=== PATIENT | female | born 1945 | race African-American/Black ===

== ENCOUNTER → 2017-02-11 | Day surgery (SDC) | payer MEDICARE ==
[~2017-02-11] MED LIST: CALC500T54 PO; IV RINGERS,LACTATED 1000ML 1,000 ML IV SCH; LIDOCAINE 1% PF 2 ML VIAL. ID PRN; LIDOCAINE 2% PF Vial for OR 5 ML VIAL. ONE; MIDAZOLAM HCL/PF 2 MG/2 ML VIAL. IV PRN; OMEG-131 PO; PROPOFOL 40 ML IV ONE; fentaNYL PF VIAL 100 MCG/2 ML VIAL IV PRN
[2017-02-11 13:45] VITALS: BP 109/55
== END | disposition home or self-care (01) ==
LOC: SURG 10:48
PROVIDERS: ATTEND Internal Medicine Gastroenterology
DX: K64.0 First degree hemorrhoids (principal); Z87.39 Personal history of other diseases of the musculoskeletal system and connective tissue; M19.91 Primary osteoarthritis, unspecified site; F41.9 Anxiety disorder, unspecified; Z98.890 Other specified postprocedural states
CPT/HCPCS: 45378; J2704; J2001

== ENCOUNTER → 2017-06-14 | Outpatient (CLI) | payer MEDICARE | END | disposition home or self-care (01) | LOC: US 16:12 | DX: Z12.31 Encounter for screening mammogram for malignant neoplasm of breast (principal); E05.20 Thyrotoxicosis with toxic multinodular goiter without thyrotoxic crisis or storm; E01.0 Iodine-deficiency related diffuse (endemic) goiter | CPT/HCPCS: 76536; 77067 ==

== ENCOUNTER → 2017-06-30 | Outpatient (CLI) | payer MEDICARE | END | disposition home or self-care (01) | LOC: KCIC US 13:52 | DX: E04.2 Nontoxic multinodular goiter (principal) | CPT/HCPCS: 76536 ==

== ENCOUNTER → 2017-07-13 | Outpatient (CLI) | payer MEDICARE ==
[2017-07-13] MEDS: IOHEXOL 300 MG/ML 100ML VIAL. IV (09:32)
== END | disposition home or self-care (01) ==
LOC: KCIC CT 08:49
DX: E04.2 Nontoxic multinodular goiter (principal)
CPT/HCPCS: 70491; Q9967

== ENCOUNTER 2017-07-26 08:37 | Outpatient (CLI) | payer MEDICARE ==
[2017-07-26 09:21] LABS: ADD MAN DIFF? NO
[2017-07-26 09:28] LABS: BASO # 0.1 x10^3/uL (0.0-0.2); BASO % 1 % (0-3); EOS # 0.3 x10^3/uL (0.0-0.7); EOS % 3 % (0-3); HEMATOCRIT 38.3 % (36.0-47.0); LYMPH # 2.3 x10^3/uL (1.0-4.8); LYMPH % 27 % (24-48); MEAN CORPUSCULAR HEMOGLOBIN 25 pg (25-35); MEAN CORPUSCULAR HGB CONC 31 g/dL (31-37); MEAN CORPUSCULAR VOLUME 79 fL (79-100); MONO # 0.4 x10^3/uL (0.0-1.1); MONO % 4 % (0-9); NEUT # 5.4 x10^3uL (1.8-7.7); NEUT % 64 % (31-73); PLATELET COUNT 368 x10^3/uL (140-400); RED BLOOD COUNT 4.85 x10^6/uL (3.50-5.40); RED CELL DISTRIBUTION WIDTH 15.2 % (11.5-14.5); WHITE BLOOD COUNT 8.4 x10^3/uL (4.0-11.0)
[2017-07-26 09:45] LABS: PROTHROMBIN TIME PATIENT 12.8 SEC (11.7-14.0)
[2017-07-26] MEDS ORDERED: LIDOCAINE WITH 8.4% SOD BICARB 3 ML DISP.SYRIN. (10:28)
[2017-07-26] MEDS: LIDOCAINE WITH 8.4% SOD BICARB 3 ML DISP.SYRIN. INJ (11:16)
== END 2017-07-26 12:18 | disposition home or self-care (01) ==
LOC: INTRAD 08:37
DX: R59.1 Generalized enlarged lymph nodes (principal); Z79.01 Long term (current) use of anticoagulants
CPT/HCPCS: 36415; 38505; 76942; 85025; 85610; 88184; 88185

== ENCOUNTER → 2018-11-04 | Outpatient (CLI) | payer MEDICARE ==
[2017-09-10 15:00] VITALS: BP 128/57
[~2018-11-04] MED LIST changes: +ASPI-630 PO; -IV RINGERS,LACTATED 1000ML 1,000 ML IV SCH; -LIDOCAINE 1% PF 2 ML VIAL. ID PRN; -LIDOCAINE 2% PF Vial for OR 5 ML VIAL. ONE; +METH-364 PO; -MIDAZOLAM HCL/PF 2 MG/2 ML VIAL. IV PRN; -PROPOFOL 40 ML IV ONE; -fentaNYL PF VIAL 100 MCG/2 ML VIAL IV PRN
--- NOTE | 2018-11-04 16:41 | RAD ---
HAND RIGHT 3V 11/04/2018 12:00 AM INDICATION: Right hand swelling with right thumb pain. No recent injury. COMPARISON: None available. TECHNIQUE: 3 views of the right hand are provided. FINDINGS: There may be a nondisplaced fracture involving the base of the distal phalanx of first digit. Bone mineralization is within normal limits. Mild osteoarthrosis of the first carpometacarpal joint. Regional soft tissues are within normal limits. There is no soft tissue gas or osseous erosion. IMPRESSION: Suspect nondisplaced fracture involving the base of the distal findings of the first digit. Correlate with the site of point tenderness along the palmar aspect of the base of the distal phalanx of the first digit. Mild osteoarthrosis of the first carpometacarpal joint. Electronically signed by: Charlotte Paredes MD (11/04/2018 4:38 PM) [id number]
== END | disposition home or self-care (01) ==
LOC: RAD 10:21
PROVIDERS: ATTEND Family Medicine
DX: M19.041 Primary osteoarthritis, right hand (principal)
CPT/HCPCS: 73130

== ENCOUNTER → 2018-12-21 | Outpatient (CLI) | payer MEDICARE ==
[2017-09-10 15:00] VITALS: BP 128/57
--- NOTE | 2018-12-21 17:24 | RAD ---
DATE: 12/21/2018 EXAM: DIGITAL SCREEN BILAT W/CAD HISTORY: Routine screening COMPARISON: 06/14/2017 and 03/17/2016 tomographic exams This study was interpreted with the benefit of Computerized Aided Detection (CAD). Breast Density: SCATTERED The breast parenchyma shows scattered fibroglandular densities. Breast parenchyma level B. FINDINGS: Benign calcifications. No suspicious mass or distortion. IMPRESSION: Stable BI-RADS CATEGORY: 1 NEGATIVE RECOMMENDED FOLLOW-UP: 12M 12 MONTH FOLLOW-UP PQRS compliance statement: Patient information was entered into a reminder system with a target due date in one year for the next mammogram. Mammography is a sensitive method for finding small breast cancers, but it does not detect them all and is not a substitute for careful clinical examination. A negative mammogram does not negate a clinically suspicious finding and should not result in delay in biopsying a clinically suspicious abnormality. "Our facility is accredited by the [employer] Mammography Program."
== END | disposition home or self-care (01) ==
LOC: MAMMO 13:28
PROVIDERS: ATTEND Family Medicine
DX: Z12.31 Encounter for screening mammogram for malignant neoplasm of breast (principal); N64.89 Other specified disorders of breast
CPT/HCPCS: 77067

== ENCOUNTER → 2019-02-02 | Outpatient (CLI) | payer MEDICARE ==
[2017-09-10 15:00] VITALS: BP 128/57
[2019-02-02 15:15] LABS: BASO # 0.1 x10^3/uL (0.0-0.2); BASO % 1 % (0-3); EOS # 0.2 x10^3/uL (0.0-0.7); EOS % 2 % (0-3); HEMOGLOBIN 12.7 g/dL (12.0-15.5); LYMPH % 40 % (24-48); MEAN CORPUSCULAR HEMOGLOBIN 27 pg (25-35); MEAN CORPUSCULAR HGB CONC 33 g/dL (31-37); MEAN CORPUSCULAR VOLUME 83 fL (79-100); MONO # 0.4 x10^3/uL (0.0-1.1); MONO % 5 % (0-9); NEUT # 3.9 x10^3/uL (1.8-7.7); NEUT % 52 % (31-73); PLATELET COUNT 282 x10^3/uL (140-400); RED BLOOD COUNT 4.71 x10^6/uL (3.50-5.40); RED CELL DISTRIBUTION WIDTH 13.9 % (11.5-14.5); WHITE BLOOD COUNT 7.6 x10^3/uL (4.0-11.0)
[2019-02-02 15:17] LABS: BILIRUBIN,URINE NEGATIVE (NEG); CLARITY,URINE CLEAR; COLOR,URINE YELLOW; NITRITE,URINE NEGATIVE (NEG); PH,URINE 5.5; PROTEIN,URINE NEGATIVE (NEG-TRACE); UROBILINOGEN,URINE 0.2 mg/dL (0.2 mg/dL)
[2019-02-02 15:26] LABS: PROTHROMBIN TIME PATIENT 12.2 SEC (11.7-14.0)
[2019-02-02 15:29] LABS: ALBUMIN 3.7 g/dL (3.4-5.0); ALBUMIN/GLOBULIN RATIO 0.9 (1.0-1.7); BACTERIA,URINE FEW /HPF (0-FEW); CALCIUM 9.6 mg/dL (8.5-10.1); CREATININE 1.1 mg/dL (0.6-1.0); GFR 58.7; POTASSIUM 4.2 mmol/L (3.5-5.1); SQUAMOUS EPITHELIAL CELL,UR OCC /LPF; TOTAL BILIRUBIN 0.3 mg/dL (0.2-1.0); TOTAL PROTEIN 7.6 g/dL (6.4-8.2); WBC,URINE RARE /HPF (0-4)
== END | disposition home or self-care (01) ==
LOC: LAB 14:54
PROVIDERS: ATTEND Podiatrist
DX: Z01.812 Encounter for preprocedural laboratory examination (principal); Z98.890 Other specified postprocedural states
CPT/HCPCS: 36415; 80053; 81001; 85025; 85610; 85730

== ENCOUNTER → 2019-02-09 | Day surgery (SDC) | payer MEDICARE ==
[~2019-02-09] VITALS: Ht 157.5 cm; Wt 86.1 kg
[~2019-02-09] MED LIST changes: +ACET-704 PO; +ACETAMINOPHEN/CODEINE 300/30MG TABLET. PO ONE; +BUPIVACAINE MPF 0.5% 30 ML VIAL. ONE; +DEXAMETHASONE SOD PHOS 4 MG/ML VIAL ONE; +HYDROmorphone 2 MG/ML VIAL IV PRN; +IV RINGERS,LACTATED 1000ML 1,000 ML IV SCH; +LATA2.5D3 OU; +LIDOCAINE 1% 20 ML VIAL. ONE; +LIDOCAINE 1% PF 2 ML VIAL. ID PRN; +LIDOCAINE 2% PF 5 ML VIAL. ONE; +MORPHINE SULFATE 2 MG/ML VIAL. IV PRN; +MULT-460 PO; +ONDANSETRON PF 4 MG/2 ML VIAL. IV PRN; +ONDANSETRON PF 4 MG/2 ML VIAL. ONE; +POVIDONE-IODINE 10% TOPICAL OINTMENT 28GM TUBE. TP ONE; +PROCHLORPERAZINE 10 MG/2 ML VIAL. IV PRN; +PROPOFOL 20 ML IV ONE; +ceFAZolin 2GM PREMIX 2 GM/50 ML BAG IV ONE; +fentaNYL PF VIAL 100 MCG/2 ML VIAL IV PRN; +fentaNYL PF VIAL 100 MCG/2 ML VIAL ONE
--- NOTE | 2019-02-09 10:58 | PDOC1 ---
History and Physical Date of Admission Date of Admission DATE: 02/09/19 TIME: 10:57 Identification/Chief Complaint Chief Complaint [facility] Source Source: Chart review, Patient History of Present Illness History of Present Illness Ms Storey is a 73yo F w/ PMHx hyperthyroidism, HTN being seen in outpatient for hammertoe surgery on her right 5th toe. She had cardiac MPI 08/2017 that was negative. Denies any SOA, MEYERS. Denies any CHRISTIE or hx of arrhythmias, PUD, falls, injury, cervical stenosis. She does have some episodes of palpitations but no episodes of dizziness or passing out. Past Medical History Cardiovascular: HTN GI: Hemorrhoids Musculoskeletal: Osteoarthritis Endocrine: Hyperthyroidism Past Surgical History Past Surgical History: Appendectomy Family History Family History: Coronary Artery Disease Social History Smoke: No ALCOHOL: none Drugs: None Current Medications Current Medications Current Medications Cefazolin Sodium/ Dextrose 50 ml @ 100 mls/hr 1X PREOP PRN IV PRIOR TO PROCEDURE; Start 02/09/19 at 06:00; Stop 02/09/19 at 18:00 Ondansetron HCl (Zofran) 4 mg PRN Q6HRS PRN IV NAUSEA/VOMITING; Start 02/09/19 at 07:00; Stop 02/10/19 at 06:59; Status Cancel Fentanyl Citrate (Fentanyl 2ml Vial) 25 mcg PRN Q5MIN PRN IV MILD PAIN 1-3; Start 02/09/19 at 07:00; Stop 02/10/19 at 06:59; Status Cancel Fentanyl Citrate (Fentanyl 2ml Vial) 50 mcg PRN Q5MIN PRN IV MODERATE TO SEVERE PAIN; Start 02/09/19 at 07:00; Stop 02/10/19 at 06:59; Status Cancel Morphine Sulfate (Morphine Sulfate) 1 mg PRN Q10MIN PRN IV SEVERE PAIN 7-10; Start 02/09/19 at 07:00; Stop 02/10/19 at 06:59; Status Cancel Ringer's Solution 1,000 ml @ 30 mls/hr Q24H IV ; Start 02/09/19 at 07:00; Stop 02/09/19 at 18:59; Status Cancel Lidocaine HCl (Xylocaine-Mpf 1% 2ml Vial) 2 ml PRN 1X PRN ID PRIOR TO IV START; Start 02/09/19 at 07:00; Stop 02/10/19 at 06:59; Status Cancel Hydromorphone HCl (Dilaudid) 0.5 mg PRN Q10MIN PRN IV SEV PAIN, Second choice; Start 02/09/19 at 07:00; Stop 02/10/19 at 06:59; Status Cancel Prochlorperazine Edisylate (Compazine) 5 mg PACU PRN PRN IV NAUSEA, MRX1; Start 02/09/19 at 07:00; Stop 02/10/19 at 06:59; Status Cancel Ondansetron HCl (Zofran) 4 mg PRN Q6HRS PRN IV NAUSEA/VOMITING; Start 02/09/19 at 07:00; Stop 02/10/19 at 06:59 Fentanyl Citrate (Fentanyl 2ml Vial) 25 mcg PRN Q5MIN PRN IV MILD PAIN 1-3; Start 02/09/19 at 07:00; Stop 02/10/19 at 06:59 Fentanyl Citrate (Fentanyl 2ml Vial) 50 mcg PRN Q5MIN PRN IV MODERATE TO SEVERE PAIN; Start 02/09/19 at 07:00; Stop 02/10/19 at 06:59 Morphine Sulfate (Morphine Sulfate) 1 mg PRN Q10MIN PRN IV SEVERE PAIN 7-10; Start 02/09/19 at 07:00; Stop 02/10/19 at 06:59 Ringer's Solution 1,000 ml @ 30 mls/hr Q24H IV Last administered on 02/09/19at 10:50; Start 02/09/19 at 07:00; Stop 02/09/19 at 18:59 Lidocaine HCl (Xylocaine-Mpf 1% 2ml Vial) 2 ml PRN 1X PRN ID PRIOR TO IV START; Start 02/09/19 at 07:00; Stop 02/10/19 at 06:59 Hydromorphone HCl (Dilaudid) 0.5 mg PRN Q10MIN PRN IV SEV PAIN, Second choice; Start 02/09/19 at 07:00; Stop 02/10/19 at 06:59 Prochlorperazine Edisylate (Compazine) 5 mg PACU PRN PRN IV NAUSEA, MRX1; Start 02/09/19 at 07:00; Stop 02/10/19 at 06:59 Lidocaine HCl 20 ml STK-MED ONCE .ROUTE ; Start 02/09/19 at 07:50; Stop 02/09/19 at 07:50; Status DC Povidone Iodine ( Betadine Oint) 28 tanya STK-MED ONCE TP ; Start 02/09/19 at 07:50; Stop 02/09/19 at 07:51; Status DC Bupivacaine HCl (Sensorcaine Mpf 0.5%) 30 ml STK-MED ONCE .ROUTE ; Start 02/09/19 at 07:51; Stop 02/09/19 at 07:51; Status DC Dexamethasone Sodium Phosphate (Decadron) 4 mg STK-MED ONCE .ROUTE ; Start 02/09/19 at 07:55; Stop 02/09/19 at 07:55; Status DC Active Scripts Active Methimazole 10 Mg Tablet 5 Mg PO DAILY 30 Days Reported Multiple Vitamin (Multivitamin With Minerals) 1 Each Tablet 1 Each PO DAILY Latanoprost 2.5 Ml Drops 1 Drop OU HS Aspirin 81 Mg Tab.chew 1 Tab PO DAILY Calcium (Calcium Carbonate) 500 Mg Tab.chew 1,000 Mg PO DAILY Fish Oil 500 mg Softgel (Oxford-3/Dha/Epa/Fish Oil) 1 Each Capsule 1,000 Mg PO DAILY Allergies Allergies: Coded Allergies: No Known Drug Allergies (Unverified , 02/11/17) ROS General: No: Chills, Night Sweats, Fatigue, Malaise, Appetite, Other PSYCHOLOGICAL ROS: No: Anxiety, Behavioral Disorder, Concentration difficultie, Decreased libido, Depression, Disorientation, Hallucinations, Hostility, Irrita blity, Memory difficulties, Mood Swings, Obsessive thoughts, Physical abuse, Sexual abuse, Sleep disturbances, Suicidal ideation, Other Eyes: No Blurry vision, No Decreased vision, No Double vision, No Dry eyes, No Excessive tearing, No Eye Pain, No Itchy Eyes, No Loss of vision, No Photophobia, No Scotomata, No Uses contacts, No Uses glasses, No Other HEENT: No: Heacaches, Visual Changes, Hearing change, Nasal congestion, Nasal discharge, Oral lesions, Sinus pain, Sore Throat, Epistaxis, Sneezing, Snoring, Tinnitus, Vertigo, Vocal changes, Other ALLERGY AND IMMUNOLOGY: No: Hives, Insect Bite Sensitivity, Itchy/Watery Eyes, Nasal Congestion, Post Nasal Drip, Seasonal Allergies, Other Hematological and Lymphatic: No: Bleeding Problems, Blood Clots, Blood Transfusions, Brusing, Night Sweats, Pallor, Swollen Lymph Nodes, Other ENDOCRINE: No: Breast Changes, Galactorrhea, Hair Pattern Changes, Hot Flashes, Malaise/lethargy, Mood Swings, Palpitations, Polydipsia/polyuria, Skin Changes, Temperature Intolerance, Unexpected Weight Changes, Other Breast: No New/Changing Breast Lumps, No Nipple changes, No Nipple discharge, No Other Respiratory: No: Cough, Hemoptysis, Orthopnea, Pleuritic Pain, Shortness of breath, SOB with excertion, Sputum Changes, Stridor, Tachypnea, Wheezing, Other Cardiovascular: No Chest Pain, No Palpitations, No Orthopnea, No Paroxysmal Noc. Dyspnea, No Edema, No Lt Headedness, No Other Gastrointestinal: No Nausea, No Vomiting, No Abdominal Pain, No Diarrhea, No Constipation, No Melena, No Hematochezia, No Other Genitourinary: No Dysuria, No Frequency, No Incontinence, No Hematuria, No Retention, No Discharge, No Urgency, No Pain, No Flank Pain, No Other, No , No , No , No , No , No , No Musculoskeletal: No Gait Disturbance, No Joint Pain, No Joint Stiffness, No Joint Swelling, No Muscle Pain, No Muscular Weakness, No Pain In:, No Swelling In:, No Other Neurological: No Behavorial Changes, No Bowel/Bladder ControlChng, No Confusion, No Dizziness, No Gait Disturbance, No Headaches, No Impaired Coord/balance, No Memory Loss, No Numbness/Tingling, No Seizures, No Speech Problems, No Tremors, No Visual Changes, No Weakness, No Other Skin: No Dry Skin, No Eczema, No Hair Changes, No Lumps, No Mole Changes, No Mottling, No Nail Changes, No Pruritus, No Rash, No Skin Lesion Changes, No Other, No Acne Physical Exam General: Alert, Oriented X3, Cooperative, No acute distress HEENT: Atraumatic, PERRLA, EOMI, Mucous membr. moist/pink Lungs: Clear to auscultation, Normal air movement Heart: S1S2, RRR, no thrills, no rubs Abdomen: Normal bowel sounds, Soft, No tenderness, No hepatosplenomegaly, No masses Extremities: No clubbing, No cyanosis, No edema, Normal pulses, No tenderness/swelling Skin: No rashes, No breakdown, No significant lesion Neuro: Normal gait, Normal speech, Strength at 5/5 X4 ext, Normal tone, Sensation intact, Cranial nerves 3-12 NL, Reflexes 2+ Psych/Mental Status: Mental status NL, Mood NL Vitals Vitals Vital Signs Date Time Temp Pulse Resp B/P (MAP) Pulse Ox O2 Delivery O2 Flow Rate FiO2 02/09/19 10:39 97.2 67 18 96 97.2 VTE Prophylaxis Ordered VTE Prophylaxis Devices: No VTE Pharmacological Prophylaxi: No Assessment/Plan Assessment/Plan A/P: Right 5th hammertoe - no further testing required prior to planned surgery. Nega tive stress test in 2018, EKG reviewed HTN - On meds Hyperthyroidism - methimazole. Sees Dr. Ruthie Munoz through [facility] No further testing necessary prior to planned surgery SHARON COY MD Feb 09, 2019 10:58
[2019-02-09 13:05] VITALS: BP 116/63
--- NOTE | 2019-02-09 13:22 | DISCH ---
DISCHARGE INSTRUCTIONS Condition on Discharge Condition on Discharge: Stable Activity After Discharge Activity Instructions for Disc: Activity as tolerated, Other, see below (Mi nimal weight bearing right lower extremity in surgical shoe) Bathing Instructions: Shower-keep dressing dry Weight Bearing Status after Di: Other, see below (Minimal weight bearing right lower extremity in surgical shoe) Diet after Discharge Diet after Discharge: Regular Wound Incision Care Wound/Incision Care: Keep wound/cast CDI, Keep wound elevated, Do not change dressing Contacting the DRMayda after DC Call your doctor for: [phone] if any issue Follow-Up Follow up with: Dr. Pringle in clinic on 02/15/19 at 1pm. ALICIA PRINGLE DPM Feb 09, 2019 13:22
--- NOTE | 2019-02-09 14:36 | PDOC4 ---
OPERATIVE NOTE: Post-Op Note Date of surgery: 02/09/19 Surgeon: Dr. Alicia Pringle DPM Pre-op Diagnosis: Hammer digit, right 5th digit Post-op diagnosis: Same as Above Procedure: Hammer digit correction, right 5th digit EBL: 2ml (minimal) Complications: None Hemostasis: Right ankle tourniquet set at 250mmHg for 22 mins. Patient tolerated the procedure and anesthesia well. Patient transferred to PACU with vital signs stable and in stable condition with vascular status intact to the right foot. Patient to be minimal WBAT in a surgical shoe to the right foot till followup in clinic. Patient to followup in clinic on Wednesday02/15/19 at 1pm. ALICIA PRINGLE DPM Feb 09, 2019 14:36
--- NOTE | 2019-02-09 16:44 | RAD ---
Examination: FOOT RIGHT 3V History: Postop hammertoe correction of the fifth digit Comparison/Correlation: None Findings: Total 3 images of the right foot were obtained. Overlying bandages of the midfoot and forefoot limits evaluation for fine detail. Partial resection of the fifth digit proximal phalanx as distal aspect is noted. Resection of the base of the fifth digit middle phalanx appears be present as well. Osteopenia is mild. Small calcaneal spur. No bony destructive findings. Degenerative changes of interphalangeal joints noted. Soft tissue swelling about the fifth metatarsophalangeal joint noted corresponding with surgical history. Impression: Postoperative findings. No suspicious process. Consider further evaluation and possible myelitis is a concern. Electronically signed by: Sukumar Lopez MD (02/09/2019 4:41 PM) [facility]
--- NOTE | 2019-02-13 12:26 | OP ---
DATE OF SURGERY: 02/09/2019 PREOPERATIVE DIAGNOSIS: Hammertoe, right foot fifth digit. POSTOPERATIVE DIAGNOSIS: Hammertoe, right foot fifth digit. PROCEDURE PERFORMED: Hammertoe correction with arthroplasty, right fifth digit. SURGEON: Alicia Pringle DPM HEMOSTASIS: Right ankle tourniquet set at 250 mmHg for 22 minutes. ANESTHESIA: IV MAC sedation with local anesthesia in a digital block fashion at the right fifth digit. INDICATIONS: The patient is a 73-year-old woman with a chronically painful fifth digit due to a corn secondary to a hammertoe deformity of the right fifth digit. The patient tried conservative treatment with wider shoes, accommodative padding without any improvement and discussed the procedure as well as the postop course, its risks, benefits, and complications including delayed healing, nonhealing, need for further surgery, infection, chronic regional pain syndrome, recurrence, numbness, tingling, burning, loss of sensation, blood clots to the leg, blood clots to the lung, overcorrection, under correction, stiff toe, floppy toe, flail toe, lack of toe purchase in detail with the patient. All questions were answered. No guarantees were made. The patient signed the consent freely and it was placed in the chart. DESCRIPTION OF PROCEDURE: The patient was transported to the operating room via cart and placed on the operating room table in a supine position. After verification of the patient, procedure, and the site, a well-padded right ankle tourniquet was placed. IV sedation was performed by Anesthesia and a local anesthetic block was administered to the right 5th digit consisting of 1:1 mixture of 1% lidocaine plain and 0.5% Marcaine plain using 10 mL total. The right foot was then prepped and draped in the usual aseptic manner. Esmarch bandage was used to exsanguinate the right foot. The right ankle tourniquet was inflated to 250 mmHg. Attention was then drawn to the fifth digit PIPJ where 2 elliptical incisions were made to excise the corn that was visible. Next, the incision was deepened with care taken to protect the neurovascular bundle. The incision was deepened to the joint capsule of the PIPJ. A horizontal incision was made along the extensor tendon as well as the joint capsule and the joint capsule was reflected off the proximal phalanx head of the right fifth digit. Next, the proximal phalanx head was resected about 3 mm in length and it was noted that the toe position was rectus. Next, the incision site was irrigated copiously with sterile saline solution. Next, the extensor tendon was sutured together with 3-0 Vicryl. The skin incision was then sutured in a horizontal mattress fashion with 4-0 nylon. The tourniquet was deflated after 22 minutes with good perfusion noted to the digits. A Betadine ointment, Adaptic, 4 x 4 gauze, Kerlix, and Cheko wrap bandage were applied to the site. There was good perfusion noted to all the digits of the right foot. The patient tolerated the anesthesia and the procedure well and was transported to the PACU in a stable condition with vascular status intact to the right foot. The patient's postop instructions were placed in the chart. The patient to be minimal weightbearing as tolerated in a surgical shoe. The patient is to follow up in clinic within 5-7 days or sooner if any issues. The patient was given postoperative medications for pain. ALICIA PRINGLE DPM DR: Wiley JOB#: [id number] / [id number]
--- NOTE | 2019-02-13 15:07 | PATHOLOGY ---
[facility] Accession Number: [id number] . 01 Material submitted: . toe - BONE FIFTH DIGIT RIGHT FOOT. Modifiers: right, fifth . 01 Clinical history: . None provided. . 02 Diagnosis: Segments of bone and cartilage with focal attached fibrous tissue, fifth digit right foot: - Consistent with hammertoe deformity. (JPM:academic coordinator; 02/13/2019) MBR 02/13/2019 1005 Local . 02 Electronically signed: . Alcides Justin MD, Pathologist NPI- [id number] . 01 Gross description: . Received in formalin labeled "Bhavik Storey, bone, fifth digit right foot" is a fragment of franco-white bone measuring 1.3 x 0.7 x 0.5 cm. The specimen is trisected and submitted in cassette A1 following decalcification. [place] 02/09/2019[place] [facility] 02/09/2019 1907 Local . 02 Pathologist provided ICD-10: M20.61 . 02 CPT . 687831, [id number] Specimen Comment: A courtesy copy of this report has been sent to Specimen Comment: [phone], . Specimen Comment: Report sent to / DR FANG Performed at: 01 [facility] [address], [place] [id number] MD Vinh Denton MD Phone: [phone] Performed at: 02 [facility] [address] [place], [place] [id number] MD Alcides Justin MD Phone: [phone]
== END ==
LOC: SURG 09:58
PROVIDERS: ATTEND Podiatrist
DX: M20.41 Other hammer toe(s) (acquired), right foot (principal); E05.90 Thyrotoxicosis, unspecified without thyrotoxic crisis or storm; F41.9 Anxiety disorder, unspecified; H40.9 Unspecified glaucoma; L84 Corns and callosities; B35.1 Tinea unguium; Z79.82 Long term (current) use of aspirin; I11.9 Hypertensive heart disease without heart failure; I43 Cardiomyopathy in diseases classified elsewhere; Z87.39 Personal history of other diseases of the musculoskeletal system and connective tissue
CPT/HCPCS: 28285; 73630; 88304; 88311; A7015; J0696; J2001; J2405; J2704; J3010; J3490; J1100

== ENCOUNTER → 2020-01-08 | Outpatient (CLI) | payer MEDICARE ==
[2019-02-09 13:05] VITALS: BP 116/63
[~2020-01-08] MED LIST changes: -ACETAMINOPHEN/CODEINE 300/30MG TABLET. PO ONE; -BUPIVACAINE MPF 0.5% 30 ML VIAL. ONE; -DEXAMETHASONE SOD PHOS 4 MG/ML VIAL ONE; -HYDROmorphone 2 MG/ML VIAL IV PRN; -IV RINGERS,LACTATED 1000ML 1,000 ML IV SCH; -LIDOCAINE 1% 20 ML VIAL. ONE; -LIDOCAINE 1% PF 2 ML VIAL. ID PRN; -LIDOCAINE 2% PF 5 ML VIAL. ONE; -MORPHINE SULFATE 2 MG/ML VIAL. IV PRN; -ONDANSETRON PF 4 MG/2 ML VIAL. IV PRN; -ONDANSETRON PF 4 MG/2 ML VIAL. ONE; -POVIDONE-IODINE 10% TOPICAL OINTMENT 28GM TUBE. TP ONE; -PROCHLORPERAZINE 10 MG/2 ML VIAL. IV PRN; -PROPOFOL 20 ML IV ONE; -ceFAZolin 2GM PREMIX 2 GM/50 ML BAG IV ONE; -fentaNYL PF VIAL 100 MCG/2 ML VIAL IV PRN; -fentaNYL PF VIAL 100 MCG/2 ML VIAL ONE
--- NOTE | 2020-01-08 14:23 | RAD ---
EXAM: Carotid Doppler sonogram. HISTORY: Carotid bruit. TECHNIQUE: Evans scale and color Doppler sonographic evaluation of the neck with spectral waveform analysis was performed and static images are submitted for review. FINDINGS: The peak systolic velocity within the right common carotid artery is 149 cm/sec. The peak systolic velocity within the right internal carotid artery is 121 cm/sec and the end diastolic velocity within the right internal carotid artery is 21 cm/sec. The right ICA/CCA ratio is 0.81. The peak systolic velocity within the left common carotid artery is 110 cm/sec. The peak systolic velocity within the left internal carotid artery is 93 cm/sec and the end diastolic velocity within the left internal carotid artery is 29 cm/sec. The left ICA/CCA ratio is 0.84. There is normal antegrade flow within both vertebral arteries. IMPRESSION: No Doppler evidence of greater than 50 percent stenosis involving the internal carotid arteries. PQRS Compliance Statement - Stenosis calculations for CT, MR and conventional angiography are based upon measurement of the distal ICA diameter in accordance with the NASCET methodology. Stenosis calculations for carotid ultrasound studies are derived from validated velocity criteria which are known to correlate with the NASCET methodology. Electronically signed by: Dacia Brennan MD (01/08/2020 2:19 PM) [id number]
--- NOTE | 2020-01-09 09:13 | RAD ---
DATE: 01/08/2020 9:35 AM EXAM: MAMMO UZAIR SCREENING BILATERAL HISTORY: Screening COMPARISON: 12/21/2018, 06/14/2017 and 03/17/2016 Bilateral CC and MLO views of the breasts were performed. Bilateral breast tomosynthesis was performed in CC and MLO projections. This study was interpreted with the benefit of Computerized Aided Detection (CAD). FINDINGS: Breast Density: SCATTERED The breast parenchyma shows scattered fibroglandular densities. Breast parenchyma level B No suspicious masses, microcalcifications or architectural distortion is present to suggest malignancy in either breast. The visualized axillae are unremarkable. IMPRESSION: No mammographic evidence of malignancy. BI-RADS CATEGORY: 1 NEGATIVE RECOMMENDED FOLLOW-UP: 12M 12 MONTH FOLLOW-UP Annual screening mammography is recommended, unless clinically indicated sooner based on symptoms or change in physical exam. PQRS compliance statement: Patient information was entered into a reminder system with a target due date for the next mammogram. Mammography is a sensitive method for finding small breast cancers, but it does not detect them all and is not a substitute for careful clinical examination. A negative mammogram does not negate a clinically suspicious finding and should not result in delay in biopsying a clinically suspicious abnormality. "Our facility is accredited by the [employer] Mammography Program."
== END | disposition home or self-care (01) ==
LOC: MAMMO 09:12
PROVIDERS: ATTEND Family Medicine
DX: Z12.31 Encounter for screening mammogram for malignant neoplasm of breast (principal); R09.89 Other specified symptoms and signs involving the circulatory and respiratory systems
CPT/HCPCS: 77063; 77067; 93880

== ENCOUNTER → 2020-09-11 | Outpatient (CLI) | payer MEDICARE ==
[2019-02-09 13:05] VITALS: BP 116/63
--- NOTE | 2020-09-11 16:41 | CARD ---
MR#: [id number] Date of Study: 09/11/2020 Ordering Physician: FABIEN CHRISTENSEN, Referring Physician: FABIEN CHRISTENSEN, Tech: Uyen Lynch [facility] APPROVED REPORT EXAM: Two-dimensional and M-mode echocardiogram with Doppler and color Doppler. Other Information Quality : GoodHR: 66bpm Rhythm : NSR INDICATION Dyspnea Hypertension/HCVD 2D DIMENSIONS RVDd2.3 (2.9-3.5cm)Left Atrium(2D)3.2 (1.6-4.0cm) IVSd1.1 (0.7-1.1cm)Aortic Root(2D)2.7 (2.0-3.7cm) LVDd4.1 (3.9-5.9cm)LVOT Diameter2.0 (1.8-2.4cm) PWd1.0 (0.7-1.1cm)LVDs2.7 (2.5-4.0cm) FS (%) 34.3 %SV48.6 ml LVEF(%)63.8 (>50%) Aortic Valve AoV Peak Daniel.129.7cm/Wandy Peak GR.6.7mmHg LVOT Peak Daniel.102.5cm/sAVA (VMAX)2.48cm2 AI P 1/2 [id number] Mitral Valve MV E Sdovktpw62.5cm/sMV DECEL [id number] MV A Pvlsskqe05.9cm/sE/A Ratio0.9 Pulmonary Valve PV Peak Qcgajeey01.6cm/s Tricuspid Valve TR P. Npdvlwue612op/sRAP [id number] TR Peak Gr.79jtPeJJZP13gnWz Pulmonary Vein S1 Obbgoilx25.8cm/sD2 Iajcnlwe60.7cm/s PVa [id number] LEFT VENTRICLE The left ventricle is normal size. There is normal left ventricular wall thickness. The left ventricu lar systolic function is normal. The ejection fraction is estimated at 65%. There is normal LV segmen denise wall motion. Transmitral Doppler flow pattern is Grade I-abnormal relaxation pattern. No left elvin tricle thrombus noted on this study. There is no ventricular septal defect visualized. There is no le ft ventricular aneurysm. There is no mass noted in the left ventricle. RIGHT VENTRICLE The right ventricle is normal size. There is normal right ventricular wall thickness. The right ventr icular systolic function is normal. ATRIA The left atrium size is normal. The right atrium size is normal. The interatrial septum is intact wit h no evidence for an atrial septal defect or patent foramen ovale as noted on 2-D or Doppler imaging. AORTIC VALVE The aortic valve is mildly thickened. Doppler and Color Flow revealed mild aortic regurgitation. Ther e is no aortic valvular stenosis. There is no aortic valvular vegetation. MITRAL VALVE The mitral valve is normal in structure and function. There is no evidence of mitral valve prolapse. There is no mitral valve stenosis. There is no mitral valve regurgitation noted. TRICUSPID VALVE The tricuspid valve is normal in structure and function. Mild tricuspid regurgitation. PAP 36 mmHg. T here is no tricuspid valve prolapse or vegetation. There is no tricuspid valve stenosis. GREAT VESSELS The aortic root is normal in size. The ascending aorta is normal in size. The pulmonary artery is nor mal. PERICARDIAL EFFUSION There is no pleural effusion. There is no evidence of significant pericardial effusion. Critical Notification Critical Value: No <Conclusion> The left ventricular systolic function is normal. The ejection fraction is estimated at 65%. There is normal LV segmental wall motion. Transmitral Doppler flow pattern is Grade I-abnormal relaxation pattern. Mild aortic regurgitation. Mild tricuspid regurgitation. PAP 36 mmHg. There is no evidence of significant pericardial effusion. Signed by : Jimmie Galindo, Electronically Approved : 09/11/2020 16:40:38
== END ==
LOC: ECHO 10:23
PROVIDERS: ATTEND Internal Medicine Cardiovascular Disease
DX: I08.2 Rheumatic disorders of both aortic and tricuspid valves (principal)
CPT/HCPCS: 93306

== ENCOUNTER → 2020-10-22 | Outpatient (CLI) | payer MEDICARE ==
[2019-02-09 13:05] VITALS: BP 116/63
[2020-10-22 11:31] LABS: ALBUMIN 3.7 g/dL (3.4-5.0); ALBUMIN/GLOBULIN RATIO 0.9 (1.0-1.7); CALCIUM 9.1 mg/dL (8.5-10.1); GFR 65.4; POTASSIUM 4.3 mmol/L (3.5-5.1); TOTAL BILIRUBIN 0.4 mg/dL (0.2-1.0); TOTAL PROTEIN 7.6 g/dL (6.4-8.2)
--- NOTE | 2020-10-22 15:28 | RAD ---
EXAM: LUMBAR SPINE 3 VIEWS. HISTORY: Low back pain. COMPARISON: None. FINDINGS: Alignment is maintained. Vertebral body heights are maintained, and no fractures are identi fied. There is mild degenerative disc disease from L3 through L5. Facet osteoarthritis is at least mi ld from L4 through S1. Postsurgical changes are noted along the right lower quadrant. IMPRESSION: 1. Mild degenerative disc disease from L3 through L5. Electronically signed by: Navid Guaman MD (10/22/2020 3:26 PM) [id number]
[2020-10-23 00:09] LABS: HEMOGLOBIN A1C 5.9 % (4.8-5.6)
== END ==
LOC: LAB 10:12
PROVIDERS: ATTEND Family Medicine
DX: M47.817 Spondylosis without myelopathy or radiculopathy, lumbosacral region (principal); M51.36 Other intervertebral disc degeneration, lumbar region; E74.39 Other disorders of intestinal carbohydrate absorption; M85.9 Disorder of bone density and structure, unspecified
CPT/HCPCS: 36415; 72100; 80053; 82306; 83036

== ENCOUNTER → 2021-01-08 | Outpatient (CLI) | payer MEDICARE ==
[2019-02-09 13:05] VITALS: BP 116/63
--- NOTE | 2021-01-08 09:54 | RAD ---
EXAM: Bilateral digital screening mammogram with tomosynthesis. HISTORY: 75-year-old female presents for screening mammography. TECHNIQUE: Full-field digital craniocaudal and mediolateral oblique 2D and 3D tomosynthesis images of both breasts are obtained for evaluation. Computer aided detection was applied. COMPARISON: 01/08/2020 BREAST PARENCHYMAL DENSITY: Level B - Scattered fibroglandular densities. FINDINGS: There is no new suspicious mass, microcalcification or region of architectural distortion. IMPRESSION: BI-RADS Category 2: Benign finding(s). RECOMMENDATION: Annual mammography is recommended. If your mammogram demonstrates that you have dense breast tissue, which could hide abnormalities, and if you have other risk factors for breast cancer that have been identified, you might benefit from s upplemental screening tests that may be suggested by your ordering physician. Dense breast tissue, i n and of itself, is a relatively common condition. This information is not provided to cause undue c oncern, but rather to raise your awareness and to promote discussion with your physician regarding th e presence of other risk factors, in addition to dense breast tissue. A report of your mammography re sults will be sent to you and your physician. You should contact your physician if you have any ques tions or concerns regarding this report. Mammography is a sensitive method for finding small breast cancers, but it does not detect them all a nd is not a substitute for careful clinical examination. A negative mammogram does not negate a clin ically suspicious finding and should not result in delay in biopsying a clinically suspicious abnorma lity. PQRS compliance statement - Patient information was entered into a reminder system with a target due date for the next mammogram. "Our facility is accredited by the [employer] Mammography [employer]." Electronically signed by: Dacia Brennan MD (01/08/2021 9:52 AM) [id number]
== END ==
LOC: MAMMO 09:13
PROVIDERS: ATTEND Family Medicine
DX: Z12.31 Encounter for screening mammogram for malignant neoplasm of breast (principal)
CPT/HCPCS: 77063; 77067